=== PATIENT | female | born 1995 | race Caucasian/White ===

== ENCOUNTER 2016-10-17 13:57 | Emergency (ER) | payer MEDICAID ==
[~2016-10-17] VITALS: Ht 152.4 cm; Wt 157.4 kg
[~2016-10-17 13:57] MED LIST: KEFLEX500 MG PO; LAC PO; PRENATAL VITAMI1 TA1 PO
[2016-10-17 15:47] LABS: UA SPECIFIC GRAVITY >=1.030 (1.005-1.035); microscopic required? YES; urine erythrocyte 1+ (NEGATIVE)
[2016-10-17 16:12] LABS: BASOPHIL % 0.5 % (0-2)
[2016-10-17 16:13] LABS: PLATELET COUNT 205 x10^3mcL (130-400); RED CELL DISTRIBUTION WIDTH 14.7 % (11.5-14.5)
[2016-10-17 16:20] LABS: CALCIUM 8.5 mg/dL (8.5-10.1); CARBON DIOXIDE 28.7 mmol/L (21-32); CHLORIDE SERUM 104 mmol/L (98-107); GFR1 > 60 mL/min; GLUCOSE SERUM 138 mg/dL (74-106); POTASSIUM SERUM 3.3 mmol/L (3.5-5.1); SODIUM SERUM 142 mmol/L (136-145)
[2016-10-17 17:40] VITALS: BP 127/62
== END 2016-10-17 17:40 | disposition home or self-care (01) ==
LOC: ED 13:57
PROVIDERS: Emergency Medicine
DX: R00.0 Tachycardia, unspecified (principal); R10.9 Unspecified abdominal pain; R19.7 Diarrhea, unspecified; M54.5 Low back pain; J45.909 Unspecified asthma, uncomplicated; Z79.899 Other long term (current) drug therapy
CPT/HCPCS: 85378; Q0092

== ENCOUNTER 2016-12-24 18:41 | Emergency (ER) | payer MEDICAID ==
[2016-12-24 20:36] LABS: BASOPHIL % 1.3 % (0-2); PLATELET COUNT 183 x10^3mcL (130-400)
[2016-12-24 20:39] LABS: RED CELL DISTRIBUTION WIDTH 15.4 % (11.5-14.5)
[2016-12-24 20:55] LABS: CALCIUM 9.2 mg/dL (8.5-10.1); CARBON DIOXIDE 26.7 mmol/L (21-32); CHLORIDE SERUM 109 mmol/L (98-107); CREATININE SERUM 0.8 mg/dL (0.6-1.0); GFR1 > 60 mL/min; GLUCOSE SERUM 91 mg/dL (74-106); POTASSIUM SERUM 3.9 mmol/L (3.5-5.1); SODIUM SERUM 145 mmol/L (136-145)
[2016-12-24 21:00] LABS: ALBUMIN 3.6 g/dL (3.4-5.0); ALKALINE PHOSPHATASE 72 U/L (46-116); ALT/SGPT 44 U/L (14-59); AST/SGOT 21 U/L (15-37); BILIRUBIN TOTAL 0.23 mg/dL (0.20-1.00); TOTAL PROTEIN, SERUM 7.9 g/dL (6.4-8.2)
[2016-12-24 21:48] LABS: UA SPECIFIC GRAVITY >=1.030 (1.005-1.035); microscopic required? YES; urine erythrocyte NEGATIVE (NEGATIVE)
[2016-12-24 22:23] VITALS: BP 146/75
== END 2016-12-24 22:46 | disposition home or self-care (01) ==
LOC: ED 18:41
PROVIDERS: Emergency Medicine
DX: O23.41 Unspecified infection of urinary tract in pregnancy, first trimester (principal); Z3A.01 Less than 8 weeks gestation of pregnancy; J45.909 Unspecified asthma, uncomplicated
CPT/HCPCS: J8597; Q0092

== ENCOUNTER 2017-01-25 18:15 | Emergency (ER) | payer MEDICAID ==
[~2017-01-25] VITALS: Ht 157.5 cm; Wt 158.0 kg
[2017-01-25 21:14] VITALS: BP 117/72
== END 2017-01-25 21:14 | disposition home or self-care (01) ==
LOC: ED 18:15
DX: O99.89 Other specified diseases and conditions complicating pregnancy, childbirth and the puerperium (principal); N89.8 Other specified noninflammatory disorders of vagina; O99.211 Obesity complicating pregnancy, first trimester; J45.909 Unspecified asthma, uncomplicated; Z3A.08 8 weeks gestation of pregnancy; Z79.899 Other long term (current) drug therapy
CPT/HCPCS: 87491; 87591

== ENCOUNTER 2018-03-25 11:54 | Emergency (ER) | payer MEDICAID ==
[~2018-03-25] VITALS: Ht 152.4 cm; Wt 163.3 kg
[2018-03-25 12:25] VITALS: Ht 152.4 cm; Wt 163.3 kg
[2018-03-25 14:45] VITALS: BP 133/70
== END 2018-03-25 14:45 | disposition home or self-care (01) ==
LOC: ED 11:54
DX: R30.0 Dysuria (principal); M25.571 Pain in right ankle and joints of right foot; J45.909 Unspecified asthma, uncomplicated
CPT/HCPCS: Q0092

== ENCOUNTER 2018-03-26 20:15 | Emergency (ER) | payer MEDICAID ==
[~2018-03-26] VITALS: Ht 149.9 cm; Wt 171.0 kg
[2018-03-26 20:44] VITALS: Ht 149.9 cm; Wt 171.0 kg
[2018-03-27 01:24] VITALS: BP 134/81
== END 2018-03-27 01:24 | disposition home or self-care (01) ==
LOC: ED 20:15
DX: S93.401D Sprain of unspecified ligament of right ankle, subsequent encounter (principal); X58.XXXD Exposure to other specified factors, subsequent encounter; J45.909 Unspecified asthma, uncomplicated

== ENCOUNTER 2020-01-20 21:32 | Emergency (ER) | payer MEDICAID, SELFPAY ==
[~2020-01-20] VITALS: Ht 157.5 cm; Wt 124.7 kg
[2020-01-20 21:33] VITALS: Ht 157.5 cm; Wt 124.7 kg
[2020-01-20 21:57] VITALS: BP 142/87
== END 2020-01-20 21:57 | disposition home or self-care (01) ==
LOC: ED 21:32
DX: B34.9 Viral infection, unspecified (principal); J45.909 Unspecified asthma, uncomplicated; Z20.828 Contact with and (suspected) exposure to other viral communicable diseases
CPT/HCPCS: U0003-CS